=== PATIENT | male | born 1940 | race Caucasian/White ===

== ENCOUNTER 2023-11-20 08:28 | Day surgery (SDC) | payer MEDICARE, BC ==
[~2023-11-20] VITALS: Ht 185.4 cm; Wt 98.1 kg
[~2023-11-20 08:28] MED LIST: ASCO-356 PO; ASCO100031 PO; ASPI-1397 PO; CHOL-4 PO; CHOL100053 PO; CLOP75TA34 PO; CYAN50005 PO; CYAN50009 PO; DOCU-148 PO; DOCU100C40 PO; FINA5TAB11 PO; FINA5TAB12 PO; FLO0.4C; FLO0.4C PO; FURO-150 PO; FURO20TA4 PO; LEVO112C4 PO; LEVO112T5 PO; LIOT5TAB10 PO; NITR100C11 PO; OMEP20TA23 PO; OMEP40CA21 PO; POTA-206; POTA-206 PO; ROSU40TA71 PO; TETR-74 OP
[2023-11-20 09:28] VITALS: BP 132/60; PULSE 74; RESP 17
[2023-11-20] MEDS ORDERED: propofol 10mg/ml 20ml vial IV ONE (09:42)
[2023-11-20 10:00] VITALS: BP 116/55; PULSE 72; RESP 12; O2SAT 100
[2023-11-20 10:10] VITALS: BP 113/51; PULSE 73; RESP 16; O2SAT 92
[2023-11-20 10:20] VITALS: BP 111/53; PULSE 72; RESP 13; O2SAT 92
[2023-11-20 10:30] VITALS: BP 113/41; PULSE 70; RESP 13; O2SAT 92
== END 2023-11-20 10:55 | disposition home or self-care (01) ==
LOC: GI LAB 08:28 → EDBD 11:30
PROVIDERS: ATTEND Internal Medicine Gastroenterology
DX: R13.10 Dysphagia, unspecified (principal); K29.70 Gastritis, unspecified, without bleeding; I11.0 Hypertensive heart disease with heart failure; I50.9 Heart failure, unspecified; K21.9 Gastro-esophageal reflux disease without esophagitis; Z86.73 Personal history of transient ischemic attack (TIA), and cerebral infarction without residual deficits; Z88.0 Allergy status to penicillin; Z88.1 Allergy status to other antibiotic agents; Z88.7 Allergy status to serum and vaccine
CPT/HCPCS: 43239; A4620; J2704; J7030; J7120; Z7512; 45378; 88305

== ENCOUNTER 2024-10-13 12:55 | Outpatient (CLI) | payer BC, MEDICARE ==
[~2024-10-13 12:55] MED LIST changes: -LEVO112C4 PO; +LEVO112C5 PO; -ROSU40TA71 PO; +ROSU40TA89 PO
[2024-10-13 13:25] LABS: CREATININE 0.98 MG/DL (0.60-1.10); PRO BRAIN NATRIURETIC PEPTIDE 1664 PG/ML (0-450); TOTAL CARBON DIOXIDE 30.7 MMOL/L (24-32); eGFR 73 ML/MIN
== END 2024-10-13 23:59 | disposition home or self-care (01) ==
LOC: LAB 12:55
PROVIDERS: ATTEND Internal Medicine Interventional Cardiology
DX: I11.0 Hypertensive heart disease with heart failure (principal); I50.9 Heart failure, unspecified
CPT/HCPCS: 36415; 80048; 83880